=== PATIENT | female | born 1980 | race Hispanic/Latino ===

== ENCOUNTER 2017-10-09 16:36 | Emergency (ER) | payer OTHER ==
[2017-10-09 16:46] VITALS: BP 127/75; PULSE 97; RESP 18; TEMP 98; O2SAT 100
[2017-10-09] MEDS ORDERED: Naproxen 500 MG TAB PO STA (18:13)
[2017-10-09] MEDS ORDERED: Naproxen 500 MG TAB PO ONE (18:16)
--- NOTE | 2017-10-09 19:11 | ED PDOC ---
Lower Extremity Pain/Injury Time Seen by Provider: 10/09/17 17:04 Chief Complaint (Nursing): Lower Extremity Problem/Injury Chief Complaint (Provider): Left foot pain History Per: Patient History/Exam Limitations: no limitations Onset/Duration Of Symptoms: Hrs Current Symptoms Are (Timing): Still Present Additional History Per: Patient Additional Complaint(s): Patient reports she fell today and has had pain and swelling to her lateral left ankle and lateral dorsal aspect of her left foot. She denies any head injury, loss of consciousness or other injuries. She denies any numbness, tingling, or weakness. No other complaints. PCP: Dr. Call - Ankle/Foot Description Of Injury: Fell Past Medical History Reviewed: Historical Data, Nursing Documentation, Vital Signs Vital Signs: Last Vital Signs Temp 98.0 F 10/09/17 16:44 Pulse 97 H 10/09/17 16:44 Resp 18 10/09/17 16:44 BP 127/75 10/09/17 16:44 Pulse Ox 100 10/09/17 16:44 - Medical History PMH: No Chronic Diseases - Surgical History Surgical History: No Surg Hx - Family History Family History: States: Unknown Family Hx - Home Medications Home Medications: Ambulatory Orders Medication Instructions Recorded Amoxicillin/Clavulanate Pota 1 tab PO BID #20 tab 08/30/14 [Augmentin 875 mg-125 mg] Guaifenesin/Pseudoephedrne HCl 1 tab PO DAILY PRN #30 ter 11/20/14 [Mucinex D 600 mg-60 mg] Ibuprofen [Motrin] 600 mg PO Q6 PRN #20 tab 11/20/14 Azithromycin [Zithromax Z-Dennis] 250 mg PO DAILY #1 packet 01/11/15 Ibuprofen [Motrin] 600 mg PO Q6 PRN #20 tab 01/11/15 Amoxicillin/Clavulanate [Augmentin 1 tab PO BID #14 tab 10/18/15 875 MG-125 MG] Ibuprofen [Motrin] 600 mg PO Q6 PRN #15 tab 10/18/15 traMADol [Ultram] 50 mg PO TID PRN #12 tab 10/09/17 - Allergies Allergies/Adverse Reactions: Allergies Allergy/AdvReac Type Severity Reaction Status Date / Time No Known Allergies Allergy Verified 08/30/14 13:09 Review of Systems ROS Statement: Except As Marked, All Systems Reviewed And Found Negative Musculoskeletal: Positive for: Foot Pain (left) Neurological: Negative for: Weakness, Numbness Physical Exam - Reviewed Nursing Documentation Reviewed: Yes Vital Signs Reviewed: Yes - Physical Exam Comments: GENERAL APPEARANCE: Patient is awake, alert, oriented x 3, in moderate painful distress. SKIN: Warm, dry; (-) cyanosis. LEFT LOWER EXTREMITY: +swelling, tenderness of left lateral malleolus and dorsal aspect of lateral left foot. Achilles tendon intact and nontender. Knee and foot: (-) injury (+) normal sensation (-) tenderness. CARDIOVASCULAR: (+) distal pulse. NEUROLOGIC: (+) distal sensation. - ECG O2 Sat by Pulse Oximetry: 100 (RA) Pulse Ox Interpretation: Normal Medical Decision Making Medical Decision Making: Impression: Left foot and ankle injury r/o fracture or dislocation Plan: -- XR Left foot -- XR Left ankle -- Naproxen 500 mg PO Time: 1939 XR's reviewed and indicates a comminuted fracture of distal 5th meta-tarsal. XR result discussed with patient. Case discussed with podiatry resident Dr. Martins who will evaluate patient at bedside. Patient seen and evaluated by podiatry resident, who recommends outpatient follow up with Dr. Bloom at the podiatry clinic at [facility]. Orthoglass posterior short leg splint applied by podiatry resident. Neurovascular intact post splint application. Patient instructed on crutch walking. Advised no weight bearing. Based on history, exam and diagnostic results plan will be for outpatient podiatry follow up. Advised to follow up with Dr. Bloom in 1-2 days without fail. Advised to take medication as prescribed. Return to the emergency room at any time for any new or worsening symptoms. Patient states she fully agrees with and understands discharge instructions. States that she agrees with the plan and disposition. Verbalized and repeated discharge instructions and plan. I have given the patient opportunity to ask any additional questions. Scribe Attestation: Documented by Jasmin Lainez acting as a scribe for ELKE Jaimes Provider Scribe Attestation: All medical record entries made by the Scribe were at my direction and personally dictated by me. I have reviewed the chart and agree that the record accurately reflects my personal performance of the history, physical exam, medical decision making, and the department course for this patient. I have also personally directed, reviewed, and agree with the discharge instructions and disposition. Disposition - Clinical Impression Clinical Impression: Foot fracture, left - Patient ED Disposition Is Patient to be Admitted: No Counseled Patient/Family Regarding: Studies Performed, Diagnosis, Need For Followup, Rx Given - Disposition Referrals: Robyn Bloom DPM [Staff Provider] - Disposition Time: 22:15 Condition: STABLE Additional Instructions: No weight bearing, use crutches. Follow up with Dr. 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
--- NOTE | 2017-10-09 20:41 | CP.PCM.CON ---
History of Present Illness - History of Present Illness History of Present Illness: Podiatry Consult Note - Dr. Bloom 36 year old female patient unremarkable PMHx seen and evaluated in ED for left foot and ankle pain. Patient hemodynamically stable and NAD. present at bedside. Patient states at approximately 2:00 this afternoon she jumped up to grab something and "fell onto her foot wrong." Patient reports 10/10 pain prior to arrival, now currently well-controlled via pain medication. Patient states she is not able to ambulate on the outside of her left foot. No other complaints. Denies N/V/F/D/C/SOB/calf pain. PMHx: unremarkable PSH: jaw reconstruction FH: non-contributory SH: occasional ETOH, denies tobacco/illicit drug use Meds: None All: NKDA Review of Systems - Review of Systems All systems: reviewed and no additional remarkable complaints except (as per HPI ) Past Patient History - Past Social History Smoking Status: Never Smoked - PSYCHIATRIC Hx Substance Use: No - SURGICAL HISTORY Other/Comment: jaw reconstruction Meds Home Medications: Home Medication List Medication Instructions Recorded Confirmed Type traMADol [Ultram] 50 mg PO TID PRN #12 tab 10/09/17 Rx Allergies/Adverse Reactions: Allergies Allergy/AdvReac Type Severity Reaction Status Date / Time No Known Allergies Allergy Verified 08/30/14 13:09 Physical Exam - Constitutional Appears: Well, Non-toxic, No Acute Distress - Extremities Exam Additional comments: LLE focused physical exam VASC: DP and PT pulses palpable 2/4. CFT <3 seconds to all digits x5. Temperature gradient warm to warm. No increase in warmth noted to left lateral malleolus or dorsolateral foot. Non-pitting edema noted distal to lateral malleolus and dorsolateral forefoot. NEURO: Gross sensation intact. DERM: No open lesions noted. Ecchymosis noted distal and posterior to lateral malleolus, and dorsolateral forefoot. ORTHO: Muscle strength deferred secondary to guarding. Active digital ROM digits 1-4, absent to 5th digit. Pain on palpation left lateral malleolus and 5th metatarsal. No pain on palpation peroneal tendons, Achilles tendon, medial malleolus. No pain on calcaneal squeeze. No pain on tib-fib compression. - Neurological Exam Neurological exam: Alert, Oriented x3 - Psychiatric Exam Psychiatric exam: Normal Affect, Normal Mood Results - Vital Signs Recent Vital Signs: Last Vital Signs Temp 98.0 F 10/09/17 16:44 Pulse 97 H 10/09/17 16:44 Resp 18 10/09/17 16:44 BP 127/75 10/09/17 16:44 Pulse Ox 100 10/09/17 20:00 Assessment & Plan - Assessment and Plan (Free Text) Assessment: 36 year old female unremarkable PMHx with 1) left distal 5th metatarsal fracture , displaced and 2) left ankle sprain secondary to trauma Patient seen and evaluated in ED Discussed with attending, Dr. Bloom Left ankle XR reviewed: unremarkable - awaiting final report Left foot XR reviewed: distal 5th metatarsal fracture, displaced - awaiting final report Advised patient she will likely need surgical intervention for correction of deformity. Educated patient on risks, benefits, complications, and alternatives to procedure. Patient demonstrated verbal understanding, and wishes to proceed with this management. Posterior splint applied to LLE; patient to be NWB with the assistance of crutches Pain control per ED Patient to follow up with Dr. Bloom at [facility] podiatry clinic next week 10/14/17 Stable per podiatry standpoint Thank you for the consult, please reconsult podiatry as needed
--- NOTE | 2017-10-10 08:36 | RAD ---
PROCEDURE: Left Ankle Radiographs. HISTORY: pain COMPARISON: None FINDINGS: BONES: No acute fracture. JOINTS: Ankle mortise maintained. Talar dome intact SOFT TISSUES: Lateral malleolar soft tissue swelling. OTHER FINDINGS: None. IMPRESSION: Lateral malleolar soft tissue swelling without demonstrated fracture or dislocation.
--- NOTE | 2017-10-10 08:43 | RAD ---
PROCEDURE: Left Foot Radiographs. HISTORY: pain COMPARISON: None. FINDINGS: BONES: Displaced fracture of the 5th metatarsal. JOINTS: Unremarkable. SOFT TISSUES: Soft tissue swelling adjacent to the 5th metatarsal. OTHER FINDINGS: None. IMPRESSION: Displaced fracture of the 5th metatarsal.
== END 2017-10-09 23:18 | disposition home or self-care (01) ==
LOC: H.ER 16:36
DX: S92.351A Displaced fracture of fifth metatarsal bone, right foot, initial encounter for closed fracture (principal); X50.9XXA Other and unspecified overexertion or strenuous movements or postures, initial encounter; Y92.89 Other specified places as the place of occurrence of the external cause